=== PATIENT | male | born 1970 | race American Indian/Alaskan Native ===

== ENCOUNTER 2018-09-20 09:34 | Emergency (ER) | payer OTHER ==
[2018-09-20] MEDS ORDERED: TORADOL IM ONE (10:33)
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
[2018-09-20 12:05] VITALS: BP 157/98
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
== END 2018-09-20 12:27 | disposition home or self-care (01) ==
LOC: ED 09:34
DX: M54.5 Low back pain (principal); M54.6 Pain in thoracic spine; M25.562 Pain in left knee; I10 Essential (primary) hypertension; E11.9 Type 2 diabetes mellitus without complications; V49.49XA Driver injured in collision with other motor vehicles in traffic accident, initial encounter; Y93.89 Activity, other specified; Y92.410 Unspecified street and highway as the place of occurrence of the external cause; Y99.8 Other external cause status
CPT/HCPCS: 72072; 72100; 73562; 96372; 99283; J1885